=== PATIENT | male | born 2000 | race Caucasian/White ===

== ENCOUNTER 2019-12-25 | Emergency (ER) | payer OTHER ==
[~2019-12-25] VITALS: Ht 180.3 cm; Wt 127.0 kg
[2019-12-25 00:12] VITALS: BP 110/74
[2019-12-25] MEDS ORDERED: NACL 0.9% 1,000 ML IV ONE (00:20)
[2019-12-25] MEDS ORDERED: ONDANSETRON 4 MG/2 ML VIAL IVP ONE (00:20)
--- NOTE | 2019-12-25 00:20 | NUR ---
PT TAKEN TO BED 5
--- NOTE | 2019-12-25 00:20 | NUR ---
19 Y/O MALE PRESENTED TO ED C/O N/V/D X 1 MONTH. PT STATES HE HAS BEEN SPITTING FOR X1 MONTH BUT TODAY HE HAD A LOT OF BLOOD IN HIS SPIT. PT C/O UPPER ABD PAIN, 7/10 BLOATING, THAT RADIATES TO HIS RIGHT FLANK X 1 MONTH. PT STATES HE HAS BEEN EATING A LOT OF FASTFOOD FOR THE PAST MONTH AND IS NOT SURE IF THAT IS RELATED TO THE N/V/D. PT DENIES FEVER, CHILLS, DIAZ, COUGH, SOB. PT STATES HE HAS BEEN TAKING ANTACIDS. PT BREATHING EVEN AND UNLABORED. PT ABD ROUND, SOFT AND TENDER TO TOUCH. NORMOACTIVE BS IN ALL QUADRANTS. A/O X4. PT PLACED IN GOWN AND CONNECTED TO ON AIR HOST , PULSE OX AND BP CUFF. PT RESTING IN BED , LOCKED AND IN LOWEST POSITION, HOB ELEVATED, SIDE RAIL X1. PMH: GALLBLADDER REMOVED, NKA
--- NOTE | 2019-12-25 00:22 | NUR ---
URINE SAMPLE PROVIDED AT BEDSIDE
--- NOTE | 2019-12-25 00:26 | NUR ---
Dr. Javier examining patient.
[2019-12-25] MEDS ORDERED: KETOROLAC 30 MG/ML VIAL IVP ONE (00:30)
[2019-12-25] MEDS ORDERED: PANTOPRAZOLE 40 MG INJ VIAL IVP ONE (00:30)
--- NOTE | 2019-12-25 00:40 | NUR ---
PT IV PLACED IN LEFT A/C , 20G. IV PATENT, NO INFILTRATION, REDNESS OR SWELLING NOTED AT IV SITE.
[2019-12-25 00:41] LABS: BASOPHILS # (AUTO) 0.1 K/uL (0.00-0.22); BASOPHILS % (AUTO) 0.6 % (0.0-2.0); EOSINOPHILS # (AUTO) 0.4 K/uL (0-0.4); EOSINOPHILS % (AUTO) 2.7 % (0.0-4.0); HEMATOCRIT 44.3 % (36-52); HEMOGLOBIN 15.1 g/dL (12.0-18.0); LYMPHOCYTES # (AUTO) 4.9 K/uL (2.0-11.5); LYMPHOCYTES % (AUTO) 35.8 % (20.5-51.1); MEAN CORPUSCULAR HEMOGLOBIN 30 pg (27-31); MEAN CORPUSCULAR HGB CONC 34 g/dL (33-37); MEAN CORPUSCULAR VOLUME 87.5 fL (80-94); MONOCYTES # (AUTO) 0.7 K/uL (0.8-1.0); NEUTROPHILS # (AUTO) 7.7 K/uL (1.8-7.7); NEUTROPHILS % (AUTO) 55.9 % (42.2-75.2); PLATELET COUNT (AUTO) 310 K/uL (140-450); RED BLOOD CELL COUNT(AUTO) 5.06 MIL/uL (4.20-6.10); RED CELL DISTRIBUTION WIDTH 12.7 % (11.6-13.7); WHITE BLOOD COUNT (AUTO) 13.7 K/uL (4.8-10.8)
[2019-12-25 00:56] LABS: ALBUMIN 3.4 g/dL (3.4-5.0); ANION GAP 12.3 (8-16); ASPARTATE AMINOTRANSFERASE 17 U/L (15-37); CARBON DIOXIDE 27.6 mmol/L (21-32); CHLORIDE 105 mmol/L (98-107); CREATININE 1.5 mg/dL (0.6-1.3); GFR ARICAN-AMERICAN 76 mL/min (>90); GLUCOSE 118 mg/dL (74-106); POTASSIUM 3.9 mmol/L (3.5-5.1); SODIUM SERUM 141 mmol/L (136-145); TOTAL BILIRUBIN 0.3 mg/dL (0.0-1.0); UREA NITROGEN, BLOOD 17 mg/dL (7-18)
[2019-12-25 00:59] LABS: ACETAMINOPHEN < 0.5 ug/ml (10-30); SALICYLATE < 2.8 mg/dL (2.8-20.0)
[2019-12-25 01:14] LABS: BARBITURATE, URINE NEGATIVE ng/ml (NEG <=200); BENZODIAZEPINE, URINE NEGATIVE ng/mL (NEG <=200); CANNABINOID, URINE POSITIVE ng/mL (NEG <=50); COCAINE, URINE NEGATIVE ng/mL (NEG <=300); OPIATE, URINE NEGATIVE ng/mL (NEG <=2000); PHENCYCLIDINE SCREEN,URINE NEGATIVE ng/mL (NEG <=25)
[2019-12-25] MEDS ORDERED: ALUMINUM HYD/MAG/SIMETHICONE 30 ML UDC PO ONE (01:35)
[2019-12-25] MEDS ORDERED: LIDOCAINE VISCOUS 2% 20 ML UDC PO ONE (01:35)
[2019-12-25] MEDS ORDERED: DICYCLOMINE HCL LIQUID 10 MG/5 ML UDC PO ONE (01:35)
--- NOTE | 2019-12-25 02:08 | NUR ---
Patient discharged with v/s stable. Written and verbal after care instructions given and explained. Patient alert, oriented and verbalized understanding of instructions. Ambulatory with steady gait. All questions addressed prior to discharge. ID band removed. Patient advised to follow up with PMD. Rx of CARAFATE, PROTONIX AND MYLANTA given. Patient educated on indication of medication including possible reaction and side effects. Opportunity to ask questions provided and answered.
[2019-12-25 02:12] VITALS: BP 122/58
== END 2019-12-25 02:08 | disposition home or self-care (01) ==
LOC: MED
DX: K29.70 Gastritis, unspecified, without bleeding (principal); J45.909 Unspecified asthma, uncomplicated; Z90.49 Acquired absence of other specified parts of digestive tract
CPT/HCPCS: 36415; 80053; 80305; 85025; 93005; 96361; 96374; 96375; 99284; C9113; G0480; G0482; J1885; J2405; J7030